=== PATIENT | female | born 1960 | race Caucasian/White ===

== ENCOUNTER 2016-10-05 10:40 | Emergency (ER) | payer OTHER ==
[~2016-10-05] VITALS: Ht 154.9 cm; Wt 60.4 kg
[2016-10-05 10:45] VITALS: O2SAT 99
[2016-10-05 10:46] VITALS: Ht 154.9 cm; Wt 60.4 kg
[2016-10-05] MEDS ORDERED: MULT-506 PO (10:51)
[2016-10-05] MEDS ORDERED: SODIUM CHLORIDE 0.9% 1000ML 1,000 ML IV STA (11:53)
[2016-10-05 12:31] LABS: BASO % 0.2 %; BASO ABS # 0.02 K/uL (0-0.2); COMPLETE YES; EOS % 1.1 %; HEMATOCRIT 42.8 % (37-47); IG% 0.2 %; LYMPH ABS # 1.29 K/uL (1.2-3.4); MEAN CELL VOLUME 89.2 fL (80-100); MEAN CORPUSCULAR HGB CONC 32.5 g/dl (32-36); MEAN PLATELET VOLUME 9.7 fL (7.4-10.4); MONO % 3.6 %; NEUT % 82.9 %; PLATELET COUNT 259 K/uL (130-400); WHITE BLOOD COUNT 10.71 K/uL (4.8-10.8)
[2016-10-05 12:32] LABS: URINE APPEARANCE CLEAR (CLEAR); URINE BILIRUBIN NEG (NEG); URINE COLOR YELLOW; URINE EPITHELIAL CELL AUTO >30 /lpf (0-5); URINE NITRITE NEG (NEG); URINE SPECIFIC GRAVITY 1.022 (1.000-1.030); UROBILINOGEN NEG (NEG)
--- NOTE | 2016-10-05 12:34 | DIAGNOSTIC IMAGING REPORT ---
CHEST ONE VIEW PORTABLE HISTORY: EVALUATE ALTERED MENTAL STATUS/WEAKNESS COMPARISON: None. FINDINGS: The lungs are clear. Cardiac silhouette is normal in size. No pleural effusions. No pneumothorax. IMPRESSION: No acute process. Electronically signed by: Brian Villanueva M.D. 10/05/2016 12:32 PM Dictated Date/Time: 10/05/2016 12:24 PM
[2016-10-05 12:45] LABS: MANUAL MICROSCOPIC REQUIRED? NO; REVIEW REQ? YES
--- NOTE | 2016-10-05 12:59 | DIAGNOSTIC IMAGING REPORT ---
HEAD CT NONCONTRAST CT DOSE: 537.48 mGy.cm HISTORY: EVALUATE ALTERED MENTAL STATUS/WEAKNESS TECHNIQUE: Multiaxial CT images of the head were performed without the use of intravenous contrast. Comparison: None. Findings: The paranasal sinuses and mastoid air cells are clear. The calvarium and skull base are intact. The ventricles and sulci are within normal limits. There is no mass, hematoma, midline shift, or acute infarct. Impression: No acute intracranial abnormality. Electronically signed by: Randy Howe M.D. 10/05/2016 12:58 PM Dictated Date/Time: 10/05/2016 12:41 PM
[2016-10-05 13:22] LABS: ALT/SGPT 32 U/L (12-78); AST/SGOT 23 U/L (15-37); BLOOD UREA NITROGEN 18 mg/dl (7-18); BUN/CREATININE RATIO 26.7 (10-20); CALCIUM 9.1 mg/dl (8.5-10.1); CARBON DIOXIDE 29 mmol/L (21-32); CHLORIDE 106 mmol/L (98-107); CREATININE 0.69 mg/dl (0.60-1.20); GLUCOSE 91 mg/dl (70-99); POTASSIUM 4.3 mmol/L (3.5-5.1); SODIUM 140 mmol/L (136-145)
[2016-10-05 13:32] LABS: ALKALINE PHOSPHATASE 167 U/L (45-117)
[2016-10-05 14:34] VITALS: BP 121/76; PULSE 75; TEMP 36.7; O2SAT 98
--- NOTE | 2016-10-05 15:25 | EMERGENCY ROOM VISIT NOTE ---
History Report prepared by Lori: Bety Tristan Under the Supervision of: Dr. Sukhjinder Hull D.O. First contact with patient: 11:42 Chief Complaint: SYNCOPE Stated Complaint: SYNCOPE Nursing Triage Summary: pt at training today, had syncopal episode for a short time "5-10 seconds." She hit the floor per report. She came today by ALS, in transit she complained of a headache on her right side and abdominal pressure. pt initially wanted to refuse but facility requested transfer for medical clearance [facility], pt did eat breakfast History of Present Illness The patient is a 56 year old female who presents to the Emergency Room with complaints of a sudden episode of syncope that occurred about 1.5 hours ago, around 1030. The patient came to the ED via ambulance. The patient states that she was standing in [employer] class watching how they entered the room when she experienced syncope. She states that she wasn't doing anything physical and that she was just monitoring what they were doing. She states that she experienced severe abdominal pain prior to experiencing syncope, which has resolved and she is not in any pain currently. The patient denies any chest pain or shortness of breath prior to experiencing syncope. The patient states that she is not sure if she hit her head, but she assumes so because she is experiencing some right-sided head pain. She was able to ambulate after the syncopal episode. She states that she has experienced syncope with abdominal pain the past. The patient's last bowel movement was this morning and she states that it was normal. The patient states that she ate breakfast this morning. She denies pain or burning with urination. The patient has a history of a section, but otherwise denies any previous abdominal surgeries. She still has her gallbladder and appendix. The patient is not on any blood thinners. Source of History: patient Onset: about 1.5 hours ago, around 1030 Position: other (global) Quality: other (syncope) Timing: other (sudden) Associated Symptoms: + abdominal pain, No SOB, No chest pain, No urinary symptoms (pain or burning with urination) Note: right-sided head pain Review of Systems See HPI for pertinent positives & negatives. A total of 10 systems reviewed and were otherwise negative. Past Medical & Surgical Surgical Problems: (1) History of section Family History No pertinent family history Social History Smoking Status: Never Smoker Occupation Status: employed Current/Historical Medications Scheduled Multivitamin (Multivitamin), 1 TAB PO DAILY Allergies Coded Allergies: BEE STING (Unverified Allergy, Unknown, swelling and pain, 10/05/16) each time it gets worse Physical Exam Vital Signs Date Time Temp Pulse Resp B/P Pulse Ox O2 Delivery O2 Flow Rate FiO2 10/05/16 14:34 36.7 75 18 121/76 98 10/05/16 13:35 75 18 121/76 98 Room Air 10/05/16 13:30 82 10/05/16 12:12 76 143/80 74 132/77 73 132/75 10/05/16 11:43 77 16 125/74 98 Room Air 10/05/16 10:53 63 10/05/16 10:46 36.7 61 18 124/79 100 Room Air 10/05/16 10:45 99 Room Air Pain Rating (0-10): 1.0 Physical Exam GENERAL: alert, sitting up in bed, well appearing, well nourished, no distress, non-toxic EYE EXAM: normal conjunctiva, PERRL and EOM's intact OROPHARYNX: no exudate, no erythema, lips, buccal mucosa, and tongue normal and mucous membranes are moist NECK: supple, no nuchal rigidity, no adenopathy, non-tender LUNGS: Clear to auscultation. Normal chest wall mechanics HEART: no murmurs, S1 normal and S2 normal ABDOMEN: abdomen soft, non-tender, normo-active bowel sounds, no masses, no rebound or guarding. BACK: Back is symmetrical on inspection and there is no deformity, no midline tenderness, no CVA tenderness. SKIN: no rashes and no bruising UPPER EXTREMITIES: upper extremities are grossly normal. LOWER EXTREMITIES: No pitting edema, calves equal bilaterally. NEURO EXAM: Normal sensorium, cranial nerves II-XII intact, normal speech, no weakness of arms, no weakness of legs. No drift. Finger to nose intact. Gross sensation intact. GCS: 15. Medical Decision & Procedures ER Provider Diagnostic Interpretation: Radiology results as stated below per my review and the radiologist's interpretation: CHEST ONE VIEW PORTABLE IMPRESSION: No acute process. Electronically signed by: Brian Villanueva M.D. 10/05/2016 12:32 PM Dictated Date/Time: 10/05/2016 12:[address] NONCONTRAST Findings: The paranasal sinuses and mastoid air cells are clear. The calvarium and skull base are intact. The ventricles and sulci are within normal limits. There is no mass, hematoma, midline shift, or acute infarct. Impression: No acute intracranial abnormality. Electronically signed by: Randy Howe M.D. 10/05/2016 12:58 PM Dictated Date/Time: 10/05/2016 12:41 PM Laboratory Results 10/05/16 12:09 Red Blood Count 4.80, Mean Corpuscular Volume 89.2, Mean Corpuscular Hemoglobin 29.0, Mean Corpuscular Hemoglobin Concent 32.5, Mean Platelet Volume 9.7, Neutrophils (%) (Auto) 82.9, Lymphocytes (%) (Auto) 12.0, Monocytes (%) (Auto) 3.6, Eosinophils (%) (Auto) 1.1, Basophils (%) (Auto) 0.2, Neutrophils # (Auto) 8.87, Lymphocytes # (Auto) 1.29, Monocytes # (Auto) 0.39, Eosinophils # (Auto) 0.12, Basophils # (Auto) 0.02 10/05/16 12:09 Test 10/05/16 11:48 10/05/16 11:59 10/05/16 12:09 Urine Color YELLOW Urine Appearance CLEAR (CLEAR) Urine pH 6.0 (4.5-7.5) Urine Specific [place] 1.022 (1.000-1.030) Urine Protein NEG (NEG) Urine Glucose (UA) NEG (NEG) Urine Ketones NEG (NEG) Urine Occult Blood TRACE (NEG) Urine Nitrite NEG (NEG) Urine Bilirubin NEG (NEG) Urine Urobilinogen NEG (NEG) Urine Leukocyte Esterase NEG (NEG) Urine WBC (Auto) 1-5 /hpf (0-5) Urine RBC (Auto) 0-4 /hpf (0-4) Urine Hyaline Casts (Auto) 1-5 /lpf (0-5) Urine Epithelial Cells (Auto) >30 /lpf (0-5) Urine Bacteria (Auto) NEG (NEG) Urine Renal Epithelial Cells /lpf (0-5) Bedside Glucose 76 mg/dl (70-90) White Blood Count 10.71 K/uL (4.8-10.8) Red Blood Count 4.80 M/uL (4.2-5.4) Hemoglobin 13.9 g/dL (12.0-16.0) Hematocrit 42.8 % (37-47) Mean Corpuscular Volume 89.2 fL (80-100) Mean Corpuscular Hemoglobin 29.0 pg (25-34) Mean Corpuscular Hemoglobin Concent 32.5 g/dl (32-36) Platelet Count 259 K/uL (130-400) Mean Platelet Volume 9.7 fL (7.4-10.4) Neutrophils (%) (Auto) 82.9 % Lymphocytes (%) (Auto) 12.0 % Monocytes (%) (Auto) 3.6 % Eosinophils (%) (Auto) 1.1 % Basophils (%) (Auto) 0.2 % Neutrophils # (Auto) 8.87 K/uL (1.4-6.5) Lymphocytes # (Auto) 1.29 K/uL (1.2-3.4) Monocytes # (Auto) 0.39 K/uL (0.11-0.59) Eosinophils # (Auto) 0.12 K/uL (0-0.5) Basophils # (Auto) 0.02 K/uL (0-0.2) RDW Standard Deviation 40.7 fL (36.4-46.3) RDW Coefficient of Variation 12.6 % (11.5-14.5) Immature Granulocyte % (Auto) 0.2 % Immature Granulocyte # (Auto) 0.02 K/uL (0.00-0.02) Anion Gap 5.0 mmol/L (3-11) Est Creatinine Clear Calc Drug Dose 74.1 ml/min Estimated GFR () 111.2 Estimated GFR (Non- 96.0 BUN/Creatinine Ratio 26.7 (10-20) Calcium Level 9.1 mg/dl (8.5-10.1) Total Bilirubin 0.3 mg/dl (0.2-1) Direct Bilirubin < 0.1 mg/dl (0-0.2) Aspartate Amino Transf (AST/SGOT) 23 U/L (15-37) Alanine Aminotransferase (ALT/SGPT) 32 U/L (12-78) Alkaline Phosphatase 167 U/L (45-117) Troponin I < 0.015 ng/ml (0-0.045) Total Protein 7.5 gm/dl (6.4-8.2) Albumin 3.5 gm/dl (3.4-5.0) Thyroid Stimulating Hormone (TSH) 1.390 uIu/ml (0.300-4.500) Laboratory results per my review. Medications Administered Medications (Trade) Dose Ordered Sig/Radha Route Start Time Stop Time Status Last Admin Dose Admin Sodium Chloride (Nss 1000ml) 1,000 ml @ 999 mls/hr Q1H1M STAT IV 10/05/16 11:53 10/05/16 12:53 DC 10/05/16 12:14 999 MLS/HR ECG Indication: syncope Rate (beats per minute): 61 Rhythm: sinus rhythm Findings: no ectopy, other (normal axis) ED Course ED COURSE: Vital signs were reviewed and showed normal. The patients medical record was reviewed The above diagnostic studies were performed and reviewed. ED treatments and interventions as stated above. 1147: The patient was evaluated in room A10. A complete history and physical examination was performed. 1153: Ordered Sodium Chloride 1000 ml @ 999 mls/hr IV 1429: Upon reevaluation, the patient is doing well. I discussed my findings with the patient and she understands and agrees with the treatment plan. Based on the patients age, coexisting illnesses, exam and lab findings the decision to treat as an outpatient was made. The patient remained stable while under my care. The patient appeared well at the time of discharge. Medical Decision Differential diagnosis includes etiologies such as vasovagal event, infection, hypoglycemia, electrolyte abnormalities, cardiac sources, intracerebral event, toxicologic, neurologic, as well as others were entertained. Patient is a 56-year-old female who presents the ER for abdominal pain starting around 10:30 this morning associated with severe nausea and passing out while sitting in class. There is no exertional activity associated with this. She has had this twice before in the past. CBC along with BMP, LFTs, bilirubin and TSH were normal. Troponin was negative. EKG was unremarkable. UA, chest x- ray and CT head were negative. Patient's abdominal pain completely resolved upon presentation with her benign labs and exam I did not pursue this any further. I do feel her symptoms are most consistent with vasovagal syncope. She has no chest pain or shortness breath. Discussed with Pt concerning signs and symptoms to watch out for. Pt was instructed to follow up with their PCP and discussed with the patient their option to return to the ED at anytime for persistent or worsening symptoms. The appropriate anticipatory guidance and out- patient management, including indications for return to the emergency department , were explained at length to the patient and understood. Impression Primary Impression: Vasovagal syncope Scribe Attestation The scribe's documentation has been prepared under my direction and personally reviewed by me in its entirety. I confirm that the note above accurately reflects all work, treatment, procedures, and medical decision making performed by me. Departure Information Dispostion Home / Self-Care Referrals No Doctor, Assigned (PCP) Forms HOME CARE DOCUMENTATION FORM, IMPORTANT VISIT INFORMATION Patient Instructions My [facility], Treatment for Vasovagal Syncope, Understanding Vasovagal Syncope Additional Instructions Please follow up with your primary care doctor with in the next 24 hours. Any worsening of your symptoms, please return to the ED immediately. This includes recurrence of passing out, chest pain, shortness of breath, nausea vomiting or diarrhea. Also please return for any concerning signs or symptoms from your stand point.
== END 2016-10-05 14:36 | disposition home or self-care (01) ==
LOC: C.EDA 10:43
DX: R55 Syncope and collapse (principal); R10.9 Unspecified abdominal pain; R51 Headache